=== PATIENT | female | born 2000 | race Caucasian/White ===

== ENCOUNTER 2025-02-05 18:14 | Emergency (ER) | payer SELFPAY ==
[2025-02-05 18:17] VITALS: BMI 18.3
[2025-02-05] MEDS: ONDANSETRON 4 MG ODT SL (18:28)
[2025-02-05 18:39] VITALS: BP 124/81; PULSE 79; RESP 15; TEMP 36.6; O2SAT 99
[2025-02-05 19:19] LABS: Acetaminophen < 10 ug/mL (10-30); Alanine Aminotransferase 16 IU/L (<35); Albumin 5.3 g/dL (3.5-5.0); Albumin Globulin Ratio 1.7 (1.0-2.8); Alkaline Phosphatase 62 U/L (38-126); Blood Urea Nitrogen 12 mg/dL (7-17); Calcium 9.7 mg/dL (8.4-10.2); Carbon Dioxide 19 mmol/L (22-32); Chloride 107 mmol/L (98-107); Estimated Glomerular Filt Rate > 60 mL/min (>60); Ethanol (ETOH) 227 mg/dL (<10); Globulin 3.2 g/dL (1.7-4.1); Glucose 105 mg/dL (70-99); HEMOLYSIS < 15 (0-50); Potassium 3.5 mmol/L (3.4-5.1); Salicylate < 1.0 mg/dL (<20); Sodium 143 mmol/L (137-145); Total Protein 8.5 g/dL (6.3-8.2)
[2025-02-05 19:25] LABS: Add Manual Diff / Slide Review NO; Hematocrit 42.6 % (36-46); Hemoglobin 14.4 g/dL (12.0-16.0); Lymphocytes Absolute Auto 2900 /uL (1100-4500); Mean Corpuscular HGB Conc 33.7 % (30-36); Mean Corpuscular Hemoglobin 31.4 PG (26-34); Mean Corpuscular Volume 93.1 fL (80-100); Platelet Count 214 X10^3/uL (150-400)
[2025-02-05 19:54] LABS: TSH w/ Reflex to FT4 0.90 uIU/mL (0.47-4.68)
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
[2025-02-05] MEDS: ONDANSETRON 4 MG ODT PO (20:51)
[2025-02-05 21:15] VITALS: BP 126/74; PULSE 105; RESP 14; O2SAT 100
[2025-02-05 21:30] LABS: UR Morphine/Opiate cutoff 300 Negative (Negative); Urine MDMA Negative (Negative); Urine Methamphetamines Negative (Negative); Urine Tetrahydrocannabinol Positive (Negative); Urine Tricyclic Antidepressant Negative (Negative)
[2025-02-06 00:53] VITALS: BP 126/70; PULSE 95; RESP 22; O2SAT 97
[2025-02-06 01:27] LABS: Ethanol (ETOH) 86 mg/dL (<10)
== END 2025-02-06 02:42 | disposition home or self-care (01) ==
PROVIDERS: Emergency Provider Family Medicine
DX: F10.920 Alcohol use, unspecified with intoxication, uncomplicated (principal); F12.90 Cannabis use, unspecified, uncomplicated; Y90.7 Blood alcohol level of 200-239 mg/100 ml
CPT/HCPCS: 36415; 80053; 80305; 80320; 80329; 81003; 81015; 81025; 84443; 85025; 87086; 99283; G0480